=== PATIENT | male | born 1935 | race Caucasian/White ===

== ENCOUNTER 2017-08-27 14:29 | Emergency (ER) | payer MEDICARE ==
--- NOTE | 2017-08-27 14:39 | ER Report ---
History and Physical Time Seen By MD: 14:39 Hx. of Stated Complaint: PT PRESENTS WITH LONG HX OF BACK PAIN FROM OLD INJURY. PAIN IS WORSE NOW. MOVED FROM [place] 4 WEEKS AGO, HAS BEEN BOTHERED BY PAIN FOR 3 WEEKS (LYNSEY MAE MD) HPI/ROS CHIEF COMPLAINT: low back pain and abdominal pain HISTORY OF PRESENT ILLNESS: This is an 82 year old male. He has a history of chronic low back pain, but this has been worsening recently. No new injury. Had past injury when younger with his feet slipping off a track on heavy equipment. Back pain off and on throughout the years. Has been on Hydrocodone in the past, but has been taken off of this. Now just taking Tylenol. For the last 3-4 weeks has been having worsening pain and Tylenol is not working. He has not fevers or chills. Denies any problems with bowel or bladder function. He has no nausea or vomiting. Some abdominal pains at times. 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 Patient has no radiation of pain to his legs. He denies weakness in the legs. He has been short of breath recently and has seen his primary care provider who put him on oxygen. He has an appointment scheduled with the state trooper coming up. REVIEW OF SYSTEMS: Constitutional: No fever or chills. Eyes: Chronic vision loss. ENT: No sore throat. No congestion. Cardiovascular: No chest pain. Respiratory: No cough. Gastrointestinal: As above. Genitourinary: No dysuria. No frequency Musculoskeletal: No pain in the extremities. Skin: No rashes. Neurological: No dizziness. No headache. (LYNSEY MAE MD) Allergies: Coded Allergies: No Known Drug Allergies (Unverified , 08/27/17) Home Meds Reported Medications Nitroglycerin (NITROGLYCERIN) 0.4 Mg Tab.subl, 0.4 MG SL Q5MIN 08/27/17 Aspirin (ASPIR 81) 81 Mg Tablet.dr, 81 MG PO QDAY, TAB 08/27/17 Levetiracetam (LEVETIRACETAM) 500 Mg Tablet, 500 MG PO BID 08/27/17 Hydrocodone Bit/Acetaminophen (HYDROCODON-ACETAMINOPHEN 5-325) 1 Each Tablet, 1- 2 EACH PO Q4H, TAB 08/27/17 Fenofibrate (FENOFIBRATE) 160 Mg Tablet, 160 MG PO QDAY 08/27/17 Metoprolol Tartrate (METOPROLOL TARTRATE) 25 Mg Tablet, 1 TAB PO BID, TAB 08/27/17 Clopidogrel Bisulfate (CLOPIDOGREL) 75 Mg Tablet, 1 TAB PO QDAY, TAB 08/27/17 Discontinued Reported Medications Nitroglycerin 0.4 Mg/Hr Patch (NITROGLYCERIN 0.4 MG/HR PATCH) 1 Each Patch.td24 , 1 EACH TD Q24H, PATCH 08/27/17 Past Medical/Surgical History History of seizures, COPD, history of abdominal aortic aneurysm repair 2, history of bowel surgery for diverticulitis, 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 (LYNSEY MAE MD) Reviewed Nurses Notes: Yes (LYNSEY MAE MD) Constitutional Vital Sign - Last 24 Hours 08/27/17 08/27/17 08/27/17 08/27/17 14:35 14:43 14:59 15:00 Pulse 55 Resp 22 B/P (MAP) 154/75 (101) 148/77 (100) Pulse Ox 97 08/27/17 08/27/17 08/27/17 08/27/17 15:05 15:30 15:35 16:05 Pulse 57 64 56 B/P (MAP) 145/80 (101) Pulse Ox 96 97 96 08/27/17 08/27/17 08/27/17 08/27/17 16:30 16:35 17:00 17:05 Pulse 63 71 B/P (MAP) 154/76 (102) 163/110 (127) Pulse Ox 98 93 08/27/17 08/27/17 08/27/17 08/27/17 18:45 19:00 19:30 20:10 Pulse 74 74 76 B/P (MAP) 159/88 (111) 147/86 (106) 147/88 (107) Pulse Ox 98 98 98 08/27/17 08/27/17 08/27/17 08/27/17 20:30 21:00 21:15 22:30 Pulse 57 54 88 Resp 14 B/P (MAP) 144/104 (117) 143/75 (97) 140/82 (101) Pulse Ox 95 97 98 O2 Delivery Room Air (ADRIANA BURT DO) Physical Exam General Appearance: The patient is alert. No acute distress. Eyes: Pupils are equal, round. No pallor, injection or icterus. ENT: Mucous membranes are moist. Normal oral mucosa. Posterior oropharynx is normal. Neck: Supple and non tender. Respiratory: Lungs are clear to auscultation. Cardiovascular: Regular rate and rhythm. No murmurs, gallops or rubs. Normal capillary refill. Gastrointestinal: abdomen has no acute or focal tenderness, but has some discomfort lower abdomen. Nondistended. No rebound or guarding. Normal active bowel sounds. No costovertebral angle tenderness with percussion. Neurological: Alert and oriented x3. No focal neurologic deficits with normal sensation throughout the legs. Skin: Warm and dry. No rashes. Musculoskeletal: Extremities are nontender. Full range of motion. No tenderness in palpation of the cervical, thoracic and lumbar spine. DIFFERENTIAL DIAGNOSIS: After history and physical exam, differential diagnosis was considered for back pain and some abdominal pain, consider musculoskeletal causes such as chronic pain from his low back but also other causes of back pain and intra-abdominal pain. He does have a history of aneurysm repair in the past so this is unlikely. We'll need to look at renal function as well. ([facility],LYNSEY Boyer MD) Medical Decision Making Data Points Laboratory Hematology Test 08/27/17 15:25 08/27/17 19:44 Red Blood Count 4.70 M/uL (4.00-5.60) Mean Corpuscular Volume 91.5 fL (80.0-96.0) Mean Corpuscular Hemoglobin 30.6 pg (26.0-33.0) Mean Corpuscular Hemoglobin Concent 33.5 g/dL (32.0-36.0) Red Cell Distribution Width 15.2 % (11.5-14.5) Mean Platelet Volume 8.9 fL (7.2-11.1) Neutrophils (%) (Auto) 60.8 % (39.4-72.5) Lymphocytes (%) (Auto) 27.3 % (17.6-49.6) Monocytes (%) (Auto) 8.5 % (4.1-12.4) Eosinophils (%) (Auto) 2.6 % (0.4-6.7) Basophils (%) (Auto) 0.8 % (0.3-1.4) Nucleated RBC Relative Count (auto) 0.0 /100WBC Neutrophils # (Auto) 3.8 K/uL (2.0-7.4) Lymphocytes # (Auto) 1.7 K/uL (1.3-3.6) Monocytes # (Auto) 0.5 K/uL (0.3-1.0) Eosinophils # (Auto) 0.2 K/uL (0.0-0.5) Basophils # (Auto) 0.1 K/uL (0.0-0.1) Nucleated RBC Absolute Count (auto) 0.00 K/uL Erythrocyte Sedimentation Rate 1 mm/HOUR (0-20) Sodium Level 143 mmol/L (137-145) Potassium Level 3.9 mmol/L (3.5-5.0) Chloride Level 103 mmol/L (98-107) Carbon Dioxide Level 27 mmol/L (22-30) Blood Urea Nitrogen 29 mg/dl (9-21) Creatinine 1.30 mg/dl (0.66-1.25) Glomerular Filtration Rate Calc 53.0 Random Glucose 118 mg/dl (75-110) Calcium Level 9.4 mg/dl (8.4-10.2) Total Bilirubin 0.4 mg/dl (0.2-1.3) Aspartate Amino Transf (AST/SGOT) 31 U/L (0-35) Alanine Aminotransferase (ALT/SGPT) 19 U/L (0-56) Alkaline Phosphatase 43 U/L (0-126) C-Reactive Protein < 0.5 mg/dl (<1.0) Total Protein 6.8 gm/dl (6.3-8.2) Albumin 3.6 g/dl (3.5-5.0) Urine Color Yellow Urine Clarity Clear Urine pH 6.0 pH (4.8-9.5) Urine Specific [place] 1.047 Urine Protein Negative mg/dL (NEGATIVE) Urine Glucose (UA) Negative mg/dL (NEGATIVE) Urine Ketones Negative mg/dL (NEGATIVE) Urine Blood Negative (NEGATIVE) Urine Nitrite Negative (NEGATIVE) Urine Bilirubin Negative (NEGATIVE) Urine Urobilinogen Negative mg/dL (0.2-1.9) Urine Leukocyte Esterase Negative (NEGATIVE) Urine RBC <1 /HPF (0-2/HPF) Urine WBC <1 /HPF (0-5/HPF) Urine Squamous Epithelial Cells None /LPF (</=FEW) Urine Bacteria Negative /HPF (NONE-FEW) Urine Mucus None /HPF (NONE-FEW) Chemistry Test 08/27/17 15:25 08/27/17 19:44 White Blood Count 6.3 k/uL (4.5-11.0) Red Blood Count 4.70 M/uL (4.00-5.60) Hemoglobin 14.4 g/dL (14.0-18.0) Hematocrit 43.0 % (42.0-52.0) Mean Corpuscular Volume 91.5 fL (80.0-96.0) Mean Corpuscular Hemoglobin 30.6 pg (26.0-33.0) Mean Corpuscular Hemoglobin Concent 33.5 g/dL (32.0-36.0) Red Cell Distribution Width 15.2 % (11.5-14.5) Platelet Count 161 K/uL (150-450) Mean Platelet Volume 8.9 fL (7.2-11.1) Neutrophils (%) (Auto) 60.8 % (39.4-72.5) Lymphocytes (%) (Auto) 27.3 % (17.6-49.6) Monocytes (%) (Auto) 8.5 % (4.1-12.4) Eosinophils (%) (Auto) 2.6 % (0.4-6.7) Basophils (%) (Auto) 0.8 % (0.3-1.4) Nucleated RBC Relative Count (auto) 0.0 /100WBC Neutrophils # (Auto) 3.8 K/uL (2.0-7.4) Lymphocytes # (Auto) 1.7 K/uL (1.3-3.6) Monocytes # (Auto) 0.5 K/uL (0.3-1.0) Eosinophils # (Auto) 0.2 K/uL (0.0-0.5) Basophils # (Auto) 0.1 K/uL (0.0-0.1) Nucleated RBC Absolute Count (auto) 0.00 K/uL Erythrocyte Sedimentation Rate 1 mm/HOUR (0-20) Glomerular Filtration Rate Calc 53.0 Calcium Level 9.4 mg/dl (8.4-10.2) Total Bilirubin 0.4 mg/dl (0.2-1.3) Aspartate Amino Transf (AST/SGOT) 31 U/L (0-35) Alanine Aminotransferase (ALT/SGPT) 19 U/L (0-56) Alkaline Phosphatase 43 U/L (0-126) C-Reactive Protein < 0.5 mg/dl (<1.0) Total Protein 6.8 gm/dl (6.3-8.2) Albumin 3.6 g/dl (3.5-5.0) Urine Color Yellow Urine Clarity Clear Urine pH 6.0 pH (4.8-9.5) Urine Specific [place] 1.047 Urine Protein Negative mg/dL (NEGATIVE) Urine Glucose (UA) Negative mg/dL (NEGATIVE) Urine Ketones Negative mg/dL (NEGATIVE) Urine Blood Negative (NEGATIVE) Urine Nitrite Negative (NEGATIVE) Urine Bilirubin Negative (NEGATIVE) Urine Urobilinogen Negative mg/dL (0.2-1.9) Urine Leukocyte Esterase Negative (NEGATIVE) Urine RBC <1 /HPF (0-2/HPF) Urine WBC <1 /HPF (0-5/HPF) Urine Squamous Epithelial Cells None /LPF (</=FEW) Urine Bacteria Negative /HPF (NONE-FEW) Urine Mucus None /HPF (NONE-FEW) Urinalysis Test 08/27/17 19:44 Urine Color Yellow Urine Clarity Clear Urine pH 6.0 pH (4.8-9.5) Urine Specific [place] 1.047 Urine Protein Negative mg/dL (NEGATIVE) Urine Glucose (UA) Negative mg/dL (NEGATIVE) Urine Ketones Negative mg/dL (NEGATIVE) Urine Blood Negative (NEGATIVE) Urine Nitrite Negative (NEGATIVE) Urine Bilirubin Negative (NEGATIVE) Urine Urobilinogen Negative mg/dL (0.2-1.9) Urine Leukocyte Esterase Negative (NEGATIVE) Urine RBC <1 /HPF (0-2/HPF) Urine WBC <1 /HPF (0-5/HPF) Urine Squamous Epithelial Cells None /LPF (</=FEW) Urine Bacteria Negative /HPF (NONE-FEW) Urine Mucus None /HPF (NONE-FEW) (ADRIANA BURT DO) EKG/Imaging Imaging ABDOMEN/PELVIS WITH CONTRAST HISTORY: low back and flank pain TECHNIQUE: Following administration of IV contrast contiguous axial images acquired through the abdomen/pelvis. Coronal and sagittal reformatting also performed. Dose Lowering Technique One of the following dose optimization techniques was utilized in the performance of this exam: Automated exposure control; adjustment of the mA and/ or kV according to the patient's size; or use of an iterative reconstruction technique. Specific details can be referenced in the facility's radiology CT exam operational policy. CONTRAST: 75 mL Isovue-370 COMPARISON: None. FINDINGS: Visualized lung bases: Mild linear stranding the lung bases consistent with scarring versus atelectasis. There are coronary artery calcifications Hepatobiliary: The gallbladder appears contracted which could be related to a recent meal. Spleen: Negative. Adrenals: Negative. Pancreas: Negative. Kidneys ureters or bladder: There are bilateral renal cysts. The largest in the lower pole the right kidney measures 1.4 cm largest lower pole the left kidney measures 3.5 cm Genitalia: Prostate gland is heterogeneous, enlarged and impinges upon the floor the bladder GI: There is an anastomotic staple line in the sigmoid colon. There is diverticulosis left-sided colon although no CT evidence of acute diverticulitis Vessels/spaces/nodes: There are aortic and by iliac stent grafts. There are severe vascular calcification throughout the [place] arteries in the abdomen and pelvis. In the midabdomen there is a lobular hypoattenuating space-occupying process just anterior to the distal abdominal aorta and proximal iliac arteries measuring 5.6 x 4.3 x 9.3. Along the left lateral aspect is a small curvilinear area of hyperattenuation. 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 The small hyperdensity is worrisome for possible type II leak. Bones/soft tissues: There is a right inguinal hernia containing fat and knuckle of nonobstructed small bowel . There is severe spondylotic changes of the visualized thoracolumbar spine and postoperative changes at L3-4-5 Additional findings: None pertinent. IMPRESSION: There are aortic and biiliac stent grafts in place. In the mid abdomen there is a lobular hypoattenuating space-occupying process just anterior to the distal abdominal aorta and proximal iliac arteries measuring 5.6 x 4.3 x 9.3 cm. The differential diagnosis would include a large saccular aneurysm through which the endograft placed. Small curvilinear area of hyperattenuation along the lateral aspect could represent a type II leak. Intermediate repeat CT through the pelvis to evaluate for potential change in CT Hounsfield units within this collection is recommended. If this does not answer the question concerning a slow leak then a repeat CT of abdomen and pelvis with and without contrast utilizing the aortic endograft protocol is recommended following hydration. Several hours before the next contrast study is recommended to allow for the contrast to clear. Gallbladder appears contracted which could be related to a recent meal. Correlation with meal history needed. There is a right inguinal hernia containing fat in the knuckle of nonobstructed small bowel Additional chronic findings as described. Results were called to LYNSEY MAE at 08/27/2017 4:47 PM. Report Dictated By: Tamiko Bowles MD at 08/27/2017 4:10 PM L-SPINE W CONTRAST INDICATION: Back and flank pain COMPARISON: None TECHNIQUE: Lumbar spine CT was performed following the injection of 75 mL Isovue 370. Images were reconstructed from the abdomen and pelvis CT. FINDINGS: Lumbar vertebral body heights are normal. Minimal to mild T12 wedge compression deformity. Age-indeterminate partial discontinuity of an anterior endplate osteophyte along the upper T12 vertebral body, sagittal image 47, coronal image 31. No lumbar spine fracture. L3-L5 laminectomy defects. Multilevel anterior flowing ossification in keeping with idiopathic skeletal hyperostosis. Multilevel facet arthropathy. Severe L1-2, moderate L2-3, moderate L3-4, severe L4-5 and severe L5-S1 degenerative disc disease. Multilevel foraminal narrowing secondary to endplate spurring and facet arthropathy most pronounced at the right L3-4 and L4 -5 levels. Convexity left lower and convexity right upper lumbar scoliosis. Implanted device in the posterior subcutaneous soft tissues with associated electrode is incompletely imaged. No apparent pathologic enhancement in the canal. Left renal cysts noted. Aortoiliac stent graft. Apparent fluid collection anterior to the aorta and iliac arteries as described on comparison abdomen and pelvis CT report. IMPRESSION: Age-indeterminate minimal to mild T12 wedge compression deformity which may be chronic. A subacute fracture cannot be excluded given presence of a nonunited anterior left endplate osteophyte which could indicate a subacute fracture. Correlate with site of pain. Multilevel severe degenerative disc disease. Report Dictated By: Mike Cruz MD at 08/27/2017 5:08 PM (LYNSEY MAE MD) Imaging Results: CT scan of the repeat abdomen and pelvis with IV contrast was obtained. The results of the study are CT abdomen and pelvis without and with IV contrast Indication: Abdominal pain. Possible endograft leak. Comparison: 08/27/2017.. Technique: Axial CT images were obtained through the abdomen and pelvis prior to and during injection of nonionic iodinated intravenous contrast. Reformatted coronal and sagittal images were also obtained. One of the following dose optimization techniques was utilized in the performance of this exam: Automated exposure control; adjustment of the mA and/ or kV according to the patient's size; or use of an iterative reconstruction technique. Specific details can be referenced in the facility's radiology CT exam operational policy. Contrast: 75 ml of Isovue-370 IV contrast. Findings: Lower lung [place]: Mild scarring and dependent atelectasis. Liver: No focal parenchymal abnormality of the liver. Biliary: Gallbladder appears unremarkable as well as the intra and extra hepatic biliary system. Pancreas: Normal appearance. Spleen: Normal appearance. Adrenal glands: Unremarkable. Kidneys / retroperitoneum: No evidence of nephrolithiasis or hydronephrosis. Stable bilateral renal cyst, largest on the left measuring 3.5 cm. Bowel / peritoneum / mesenteries: There are a few diverticula along the descending and sigmoid colon without pericolonic inflammation. The colon shows no other focal abnormality. The appendix is normal. Small bowel shows no focal abnormality or obstruction. The stomach is unremarkable. No free air, free fluid, fluid collections or areas of inflammation. Lymph node assessment: No pathologic adenopathy identified. Pelvic structures: Appear unremarkable. Vessels: There is an aortic biiliac stent graft in place. There is no indication of acute hemorrhage. Just inferior to the junction of the iliac artery bifurcation there is a persistent soft tissue density/fluid collection measuring 5.7 x 4.5 cm the Hounsfield of 35. This is not significantly changed from the previous examination. No other periaortic abnormality is identified. The graft is intact and opacified throughout its length including both iliac arteries into the external iliac and femoral arteries. Musculoskeletal / Body wall: No acute or aggressive osseous abnormality. Degenerative changes spine. IMPRESSION: 1. There is an aortic bi-iliac stent graft in place. There is no acute abnormality or indication of acute leak. There is a stable soft tissue density/ fluid collection at the graft anteriorly at the bifurcation of iliac arteries however this is unchanged from previous examination. 2. Diverticulosis without radiographic indication diverticulitis. 3. Other stable chronic findings as above. The study was read by the radiologist. I viewed the images myself on the PACS system. (ADRIANA BURT DO) ED Course/Re-evaluation Clinical Indication for ER IV: Hydration, IV Access ED Course Imaging was obtained and radiology called and talked to me about imaging. The patient does have a history of abdominal aortic aneurysm with an endograft repair. There is an area at the aortic bifurcation with a small hyperattenuating region that could represent a small type II endoleak. Initial CT scan of the abdomen and pelvis was done with contrast. A noncontrast pelvis CT was done again to see if there is any leakage of contrast into the area which was negative. Recommendation for a repeat CT scan of the abdomen and pelvis with and without contrast utilizing the aortic endograft protocol was recommended. CT scan reconstruction of the lumbar spine does show an age indeterminate mild T12 wedge compression deformity which may be chronic but a subacute fracture cannot be excluded as well as showing multilevel severe degenerative disc disease. (LYNSEY MAE MD) Clinical Indication for ER IV: Hydration, IV Access ED Course Care was assumed at shift change with repeat diagnostic CT of the abdomen and pelvis with focus on the abdominal aortic aneurysm for potential leak. Patient was hydrated with 2 L of normal saline. We waited nearly 4 hours for contrast clear. Repeat CT scan was negative for changes to suggest a slow leak. Patient was advised to follow-up with his primary Dr Avalos for review of his CAT scans and referral to specialty services as needed Decision to Disposition Date: August 27, 2017 Decision to Disposition Time: 21:44 (ADRIANA BURT DO) Depart Departure Latest Vital Signs Vital Signs Date Time Temp Pulse Resp B/P (MAP) Pulse Ox O2 Delivery O2 Flow Rate FiO2 08/27/17 22:30 88 14 140/82 (101) 98 Room Air (ADRIANA BURT DO) Impression: Primary Impression: Abdominal pain Additional Impressions: Back pain Degenerative disc disease, lumbar Compression fracture of T12 vertebra Condition: Improved Disposition: HOME OR SELF-CARE Referrals: LEVI AVALOS MD Patient Instructions: Abdominal Pain (ED), Back Pain (ED) Additional Instructions: Follow-up with Dr. Avalos within one week to review results and consider referral to specialists Problem Qualifiers Primary Impression: Abdominal pain Abdominal location: generalized Qualified Codes: R10.84 - Generalized abdominal pain Additional Impressions: Back pain Back pain location: low back pain Chronicity: unspecified Back pain laterality: midline Sciatica presence: without sciatica Qualified Codes: M54.5 - Low back pain LYNSEY MAE MD August 27, 2017 14:39 ADRIANA BURT DO August 27, 2017 21:46
[2017-08-27] MEDS ORDERED: CLOP75TA PO (14:54)
[2017-08-27] MEDS ORDERED: ASPI-1471 PO (14:54)
[2017-08-27] MEDS ORDERED: METO25TA93 PO (14:54)
[2017-08-27] MEDS ORDERED: FENO160T11 PO (14:54)
[2017-08-27] MEDS ORDERED: LEVE500T73 PO (14:54)
[2017-08-27] MEDS ORDERED: HYDR-385 PO (14:54)
[2017-08-27] MEDS ORDERED: NITR1PAT8 TD (14:54)
[2017-08-27] MEDS ORDERED: IOPAMIDOL 76% 75 ML INFUS BTL 75 ML ONE ×2 (15:24→19:54)
[2017-08-27 15:37] LABS: PLATELET COUNT, AUTOMATED 161 K/uL (150-450)
--- NOTE | 2017-08-27 16:51 | RADIOLOGY IMAGING REPORT ---
[place]AC[place] [facility] [place] NAME: Cooper Ragland : 1935 MR: [id number] V: [id number] EXAM DATE: ORDERING PHYSICIAN: LYNSEY MAE TECHNOLOGIST: Location: [facility] [place] Patient: Cooper Ragland : 1935 Visit/Account:[id number] Date of Sevice: 08/27/2017 ABDOMEN/PELVIS WITH CONTRAST HISTORY: low back and flank pain TECHNIQUE: Following administration of IV contrast contiguous axial images acquired through the abdom en/pelvis. Coronal and sagittal reformatting also performed. Dose Lowering Technique One of the following dose optimization techniques was utilized in the performance of this exam: Autom ated exposure control; adjustment of the mA and/or kV according to the patient's size; or use of an i terative reconstruction technique. Specific details can be referenced in the facility's radiology C T exam operational policy. CONTRAST: 75 mL Isovue-370 COMPARISON: None. FINDINGS: Visualized lung bases: Mild linear stranding the lung bases consistent with scarring versus atelect asis. There are coronary artery calcifications Hepatobiliary: The gallbladder appears contracted which could be related to a recent meal. Spleen: Negative. Adrenals: Negative. Pancreas: Negative. Kidneys ureters or bladder: There are bilateral renal cysts. The largest in the lower pole the right kidney measures 1.4 cm largest lower pole the left kidney measures 3.5 cm Genitalia: Prostate gland is heterogeneous, enlarged and impinges upon the floor the bladder GI: There is an anastomotic staple line in the sigmoid colon. There is diverticulosis left-sided co darlene although no CT evidence of acute diverticulitis Vessels/spaces/nodes: There are aortic and by iliac stent grafts. There are severe vascular calcifi cation throughout the [place] arteries in the abdomen and pelvis. In the midabdomen there is a lobular hypoattenuating space-occupying process just anterior to the dis sami abdominal aorta and proximal iliac arteries measuring 5.6 x 4.3 x 9.3. Along the left lateral as pect is a small curvilinear area of hyperattenuation. 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 The small hyperdensity is worrisome for possible type II leak. Bones/soft tissues: There is a right inguinal hernia containing fat and knuckle of nonobstructed sma ll bowel . There is severe spondylotic changes of the visualized thoracolumbar spine and postoperat johan changes at L3-4-5 Additional findings: None pertinent. IMPRESSION: There are aortic and biiliac stent grafts in place. In the mid abdomen there is a lobular hypoattenu ating space-occupying process just anterior to the distal abdominal aorta and proximal iliac arteries measuring 5.6 x 4.3 x 9.3 cm. The differential diagnosis would include a large saccular aneurysm th rough which the endograft placed. Small curvilinear area of hyperattenuation along the lateral aspec t could represent a type II leak. Intermediate repeat CT through the pelvis to evaluate for potentia l change in CT Hounsfield units within this collection is recommended. If this does not answer the q uestion concerning a slow leak then a repeat CT of abdomen and pelvis with and without contrast utili zing the aortic endograft protocol is recommended following hydration. Several hours before the next contrast study is recommended to allow for the contrast to clear. Gallbladder appears contracted which could be related to a recent meal. Correlation with meal histor y needed. There is a right inguinal hernia containing fat in the knuckle of nonobstructed small bowel Additional chronic findings as described. Results were called to LYNSEY MAE at 08/27/2017 4:47 PM. Report Dictated By: Tamiko Bowles MD at 08/27/2017 4:10 PM Report E-Signed By: Tamiko Bowles MD at 08/27/2017 4:47 PM WSN:[email or web address]
--- NOTE | 2017-08-27 17:23 | RADIOLOGY IMAGING REPORT ---
FACILITY: [facility] PATIENT NAME: Cooper Ragland : 1935 MR: [id number] V: [id number] EXAM DATE: ORDERING PHYSICIAN: LYNSEY MAE TECHNOLOGIST: Location: [facility] Patient: Cooper Ragland : 1935 Visit/Account:[id number] Date of Sevice: 08/27/2017 L-SPINE W CONTRAST INDICATION: Back and flank pain COMPARISON: None TECHNIQUE: Lumbar spine CT was performed following the injection of 75 mL Isovue 370. Images were re constructed from the abdomen and pelvis CT. FINDINGS: Lumbar vertebral body heights are normal. Minimal to mild T12 wedge compression deformity. Age-inde terminate partial discontinuity of an anterior endplate osteophyte along the upper T12 vertebral body , sagittal image 47, coronal image 31. No lumbar spine fracture. L3-L5 laminectomy defects. Multilevel anterior flowing ossification in keeping with idiopathic skeletal hyperostosis. Multilevel facet arthropathy. Severe L1-2, moderate L2-3, moderate L3-4, severe L4-5 and severe L5-S1 degenerative disc disease. M ultilevel foraminal narrowing secondary to endplate spurring and facet arthropathy most pronounced at the right L3-4 and L4-5 levels. Convexity left lower and convexity right upper lumbar scoliosis. Implanted device in the posterior subcutaneous soft tissues with associated electrode is incompletely imaged. No apparent pathologic enhancement in the canal. Left renal cysts noted. Aortoiliac stent graft. Apparent fluid collection anterior to the aorta and iliac arteries as described on comparison abdomen and pelvis CT report. IMPRESSION: Age-indeterminate minimal to mild T12 wedge compression deformity which may be chronic. A subacute f racture cannot be excluded given presence of a nonunited anterior left endplate osteophyte which coul d indicate a subacute fracture. Correlate with site of pain. Multilevel severe degenerative disc disease. Report Dictated By: Mike Cruz MD at 08/27/2017 5:08 PM Report E-Signed By: Mike Cruz MD at 08/27/2017 5:20 PM WSN:[id number]
--- NOTE | 2017-08-27 17:33 | RADIOLOGY IMAGING REPORT ---
[place] [facility] [place] Cooper Ragland : 1935 MR: [id number] V: [id number] EXAM DATE: ORDERING PHYSICIAN: LYNSEY MAE TECHNOLOGIST: Location: [facility] Patient: Cooper Ragland : 1935 Visit/Account:[id number] Date of Sevice: 08/27/2017 EXAMINATION: CT pelvis without IV contrast HISTORY: Abnormal CT. Low back pain. COMPARISON: CT of the abdomen and pelvis from the same day at 3:52 PM TECHNIQUE: Spiral scan was obtained through the pelvis without intravenous contrast. Sagittal and coronal reformatted images are also submitted. One of the following dose optimization techniques was utilized in the performance of this exam: Autom ated exposure control; adjustment of the mA and/or kV according to the patient's size; or use of an i terative reconstruction technique. Specific details can be referenced in the facility's radiology C T exam operational policy. FINDINGS: Pelvic structures: The prostate is mildly enlarged and indents the floor of the urinary bladder. R edemonstration of bilateral renal cysts. Bowel: Anastomotic clips at the sigmoid colon. Colonic diverticulosis without evidence of diverticuli tis. Peritoneum / retroperitoneum / mesenteries: No evidence of intraperitoneal free air or free fluid. Th ere is slight stranding in the fat about the loculated collection at the aortic bifurcation. Vessels: Aortobiiliac endograft. Unchanged space-occupying lobular lesion abutting the distal aorta a nd right common iliac artery, measuring 5.6 x 4.1 x 8.5 cm. Attenuation in the collection is unchange d, measuring 30 Hounsfield units. There is slight hyperattenuation within the left lateral aspect of the collection which is similar to the previous examination. Musculoskeletal / Body wall: Multilevel disc and facet degenerative changes in the lumbar spine with left convex curvature of the lumbar spine. Lymph node assessment: Negative. IMPRESSION: The space occupying lesion at the aortic bifurcation , measuring 5.6 x 4.1 x 8.5 cm is unchanged in a ttenuation with unchanged small hyperattenuating region in the left lateral aspect of the lesion. Dif ferential diagnosis would include a large saccular aneurysm through which the endograft has been plac ed. The small curvilinear area of hyperattenuation along the lateral aspect is unchanged, but remains suspicious for possible type II endoleak. Repeat CT of the abdomen and pelvis with and without contr ast utilizing the aortic endograft protocol is recommended following hydration as noted on the previo us report. Report Dictated By: Chong Ragland MD at 08/27/2017 5:06 PM Report E-Signed By: Chong Ragland MD at 08/27/2017 5:28 PM WSN:[id number]
[2017-08-27] MEDS ORDERED: NS(*) 0.9% 1000 ML BAG 1,000 ML IV ONE ×2 (17:40→18:50)
[2017-08-27] MEDS ORDERED: NITR0.4T3 SL (17:40)
[2017-08-27] MEDS ORDERED: NS 0.9% 150 ML BAG 150 ML ONE (19:54)
--- NOTE | 2017-08-27 21:39 | RADIOLOGY IMAGING REPORT ---
FACILITY: [facility] [place] PATIENT NAME: Cooper Ragland : 1935 MR: [id number] V: [id number] EXAM DATE: ORDERING PHYSICIAN: ADRIANA BURT TECHNOLOGIST: Location: [facility] - [place] Patient: Cooper Ragland : 1935 Visit/Account:[id number] Date of Sevice: 08/27/2017 CT abdomen and pelvis without and with IV contrast Indication: Abdominal pain. Possible endograft leak. Comparison: 08/27/2017.. Technique: Axial CT images were obtained through the abdomen and pelvis prior to and during injecti on of nonionic iodinated intravenous contrast. Reformatted coronal and sagittal images were also obta ined. One of the following dose optimization techniques was utilized in the performance of this exam: Autom ated exposure control; adjustment of the mA and/or kV according to the patient's size; or use of an i terative reconstruction technique. Specific details can be referenced in the facility's radiology C T exam operational policy. Contrast: 75 ml of Isovue-370 IV contrast. Findings: Lower lung bailon: Mild scarring and dependent atelectasis. Liver: No focal parenchymal abnormality of the liver. Biliary: Gallbladder appears unremarkable as well as the intra and extra hepatic biliary system. Pancreas: Normal appearance. Spleen: Normal appearance. Adrenal glands: Unremarkable. Kidneys / retroperitoneum: No evidence of nephrolithiasis or hydronephrosis. Stable bilateral renal c yst, largest on the left measuring 3.5 cm. Bowel / peritoneum / mesenteries: There are a few diverticula along the descending and sigmoid colon without pericolonic inflammation. The colon shows no other focal abnormality. The appendix is normal. Small bowel shows no focal abnormality or obstruction. The stomach is unremarkable. No free air, free fluid, fluid collections or areas of inflammation. Lymph node assessment: No pathologic adenopathy identified. Pelvic structures: Appear unremarkable. Vessels: There is an aortic biiliac stent graft in place. There is no indication of acute hemorrhage. Just inferior to the junction of the iliac artery bifurcation there is a persistent soft tissue dens ity/fluid collection measuring 5.7 x 4.5 cm the Hounsfield of 35. This is not significantly changed f rom the previous examination. No other periaortic abnormality is identified. The graft is intact and opacified throughout its length including both iliac arteries into the external iliac and femoral art eries. Musculoskeletal / Body wall: No acute or aggressive osseous abnormality. Degenerative changes spine. IMPRESSION: 1. There is an aortic bi-iliac stent graft in place. There is no acute abnormality or indication of a cute leak. There is a stable soft tissue density/fluid collection at the graft anteriorly at the bifu rcation of iliac arteries however this is unchanged from previous examination. 2. Diverticulosis without radiographic indication diverticulitis. 3. Other stable chronic findings as above. Report Dictated By: Don Mcpherson at 08/27/2017 9:19 PM Report E-Signed By: Don Mcpherson at 08/27/2017 9:35 PM WSN:[id number]
[2017-08-27 22:30] VITALS: BP 140/82
== END 2017-08-27 23:00 | disposition home or self-care (01) ==
LOC: ER 14:40
DX: M51.36 Other intervertebral disc degeneration, lumbar region (principal); S22.080A Wedge compression fracture of T11-T12 vertebra, initial encounter for closed fracture; K57.30 Diverticulosis of large intestine without perforation or abscess without bleeding; K40.90 Unilateral inguinal hernia, without obstruction or gangrene, not specified as recurrent
CPT/HCPCS: 72132; 72192; 74177; 74178; 81001; 85025; 85651; 86140; 96360; 99284; J7030; Q9967; 82040; 82247; 82310; 82374; 82435; 82565; 82947; 84075; 84132; 84155; 84295; 84450; 84460; 84520

== ENCOUNTER → 2018-06-19 | Outpatient (CLI) | payer MEDICARE ==
[~2018-06-19] MED LIST: ASPI-1471 PO; CLOP75TA PO; FENO160T11 PO; HYDR-385 PO; LEVE500T73 PO; METO25TA93 PO; NITR0.4T3 SL; NITR1PAT8 TD
--- NOTE | 2018-06-19 14:51 | RADIOLOGY IMAGING REPORT ---
FACILITY: [facility] [place] PATIENT NAME: Cooper Ragland : 1935 MR: [id number] V: [id number] EXAM DATE: ORDERING PHYSICIAN: YANCY TORO TECHNOLOGIST: Location: [facility] [place] Patient: Cooper Ragland : 1935 Visit/Account:[id number] Date of Sevice: 06/19/2018 EXAMINATION: Aorta ultrasound with duplex Doppler evaluation HISTORY: AAA surgery 2 times, most recent three months ago with abdomen pain COMPARISON: CT abdomen and pelvis August 27, 2017 FINDINGS: Suprarenal abdominal aorta: 2.4 x 2.6 cm AP and transverse dimensions Superior infrarenal abdominal aorta: 2.6 x 3.5 cm AP and transverse dimensions Mid infrarenal abdominal aorta: 2.6 x 3.3 cm AP and transverse dimensions Inferior infrarenal abdominal aorta: 2.7 x 1.9 cm AP and transverse dimensions Proximal common iliac artery diameter: Left 16 mm; right 18 mm Aorta wall: The patient has an aorto biiliac stent. This is not ideally evaluated sonographically. The anterior limb of the stent demonstrates vascular flow. On the prior CT this supplied the left co mmon iliac artery. Flow was not well demonstrated in the posterior iliac limb on the transverse imag es however flow was identified in the proximal right internal iliac artery and left internal iliac ar jean carlos suggesting the nondemonstration of flow in the posterior limb supplying the right iliac artery c ould be artifactual. Aorta and proximal common iliac artery are patent by duplex Doppler ultrasound. Incidentally noted is a 3.7 cm lower pole left renal cyst IMPRESSION: Aortobiiliac stents are not ideally evaluated on this study. Please see above discussion. Report Dictated By: Tamiko Bowles MD at 06/19/2018 2:41 PM Report E-Signed By: Tamiko Bowles MD at 06/19/2018 2:47 PM WSN:[email or web address]
== END ==
LOC: US 04:22
PROVIDERS: ATTEND Internal Medicine Cardiovascular Disease
DX: N28.1 Cyst of kidney, acquired (principal)
CPT/HCPCS: 93979